=== PATIENT | male | born 2000 | race Caucasian/White ===

== ENCOUNTER 2023-10-18 09:59 | Outpatient (AMB) | payer OTHER, SELFPAY ==
--- NOTE | 2023-10-18 10:02 | MHC.PC.OV ---
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 Dr Langford at [facility] Last office visit/CPE: > 2 yrs Acute issue(s): Patient?has?lump?at?right?groin?which?goes?away?when?he?lies?down Pain?at?right?posterolateral?buttock?and?thigh.??Intermittent.??Improves?with?stretching.??No?current?pain PMHx: None SurgHx: [place] teeth. FHx: Mom: Healthy. Dad: Healthy. Brother Colon CA about age 39/40. SocHx: Nonsmoker. EtOH: occassional 1-2 drJulio C No drugs PFSH Medical History (Updated 10/18/23 @ 10:44 by Tom Colón) No pertinent past medical history Surgical History (Updated 10/18/23 @ 10:13 by Tiarra Joe CMA) No pertinent past surgical history Family History (Updated 10/18/23 @ 10:33 by Tiarra Joe CMA) Brother Cancer Paternal Grandfather Cancer Maternal Grandfather Diabetes Social History Household Members: Family Both parents involved: Yes Caregiver staying overnight: No Housing: House Are you a primary career placement services counselor to a significant other at home: No Do you presently have visiting nurse or other home services: No 75 years or older and lives alone: No Alcohol intake: current Alcohol intake frequency: holidays/special occasions only Alcohol type: beer and other Comment: stacy scott Patient Tobacco Use Status: Never used Tobacco e-Cigarette/Vaping Use: Former Use service: No Current occupational status: employed Current occupation: [employer] Cognitive needs: No Hearing needs: No Vision needs: Yes (Patient wears glasses.) Questionnaire PHQ-9 Over the last 2 weeks, how often have you been bothered by any of the following problems? 1. Little interest or pleasure in doing things: not at all 2. Feeling down, depressed, or hopeless: not at all 3. Trouble falling or staying asleep, or sleeping too much: not at all 4. Feeling tired or having little energy: not at all 5. Poor appetite or overeating: not at all 6. Feeling bad about yourself - or that you are a failure or have let yourself or your family down: not at all 7. Trouble concentrating on things, such as reading the newspaper or watching television: not at all 8. Moving or speaking so slowly that other people could have noticed. Or the opposite - being so fidgety or restless that you have been moving around a lot more than usual: several days 9. Thoughts that you would be better off or of hurting yourself in some way: several days Total score: 2 Depression Screening Interpretation: Negative Depression Screening Done: Yes Source: Developed by Drs. Star Boston, Mady Schwartz, Mart Peñaloza and colleagues, with an educational abi from [employer]. Thrive Questionnaire Date Thrive assessed: 10/18/23 I am a: Patient What is your living situation today?: I have a steady place to live Within the past 12 months, did the food you bought not last and you didn't have the money to get more?: Never true Within the past 12 months, did you worry whether your food would run out before you got money to buy more?: Never true Do you have trouble paying for medicines?: No Do you have trouble getting transportation to medical appointments?: No Do you have trouble paying your heating and electricity bill?: No Do you have trouble taking care of your child, family member or friend?: No Do you have trouble with day-to-day activities such as bathing, preparing meals, shopping, managing finances, etc.?: No Are you currently unemployed and looking for a job?: No Are you interested in more education?: Yes THRIVE Score: 0 AUDIT C Alcohol Use Questionnaire (AUDIT-C) 1. How often do you have a drink containing alcohol?: Monthly or less 2. How many drinks containing alcohol do you have on a typical day when you are drinking?: 1 or 2 3. How often do you have six or more drinks on one occasion?: Never Total Score: 1 FRANCOIS-7 AMB Questionnaire FRANCOIS-7 Date FRANCOIS - 7 assessed: 10/18/23 Feeling nervous, anxious, or on edge: 1 = Several days Not being able to stop or control worryin = Not at all Worrying too much about different things: 1 = Several days Trouble relaxin = Not at all Being so restless that it is hard to sit still: 1 = Several days Becoming easily annoyed or irritable: 1 = Several days Feeling afraid as if something awful might happen: 0 = Not at all Total FRANCOIS-7 score (0-4 normal; 5-9 mild; 10-14 moderate; 15-21 severe): 4 Source: Developed by Drs. Star Boston, Mady Schwartz, Mart Peñaloza and colleagues, with an educational abi from [employer]. Review of Systems Const Denies chills, Denies fatigue, Denies fever(s), Denies headache(s) and Denies weakness ENT Denies dizziness and Denies headache(s) Card Denies chest pain, Denies lightheadedness, Denies dyspnea and Denies other (Palpitations) Resp Denies cough, Denies dyspnea, Denies wheezing and Denies other ( shortness of breath) Musc Denies numbness and Denies tingling Neuro Denies dizziness, Denies headache(s), Denies numbness, Denies tingling, Denies paresthesias and Denies weakness Psych Denies anxiety and Denies depression Endo Denies fatigue Aller/Immun Denies wheezing Physical exam (Primary Care) BMI result Body Mass Index 26.7 Tobacco/Smoking Status: Tobacco use Status Tobacco use date assessed 10/18/23 10/18/23 10:13 Patient Tobacco Use Status Never used Tobacco 10/18/23 10:13 e-Cigarette/Vaping Use Former Use 03/29/24 10:13 Depression Screening Interpretation: Negative Const General: no acute distress and well developed Nutritional Appearance: well nourished Orientation/consciousness: patient oriented x3 HENMT Head: Yes normocephalic and Yes atraumatic Eyes General: appearance normal, both eyes and all related structures Pupils: Equal, round and reactive pupils present EOM: EOMs intact bilaterally Resp Effort & Inspection: normal respiratory effort Auscultation: clear to auscultation bilaterally Cardio Rate: regular rate Rhythm: regular rhythm Heart sounds: S1 normal heart sound present, S2 normal heart sound present, no gallops, no murmurs and no rubs Neuro General: patient oriented x3 and gait normal Cranial nerves: Yes Equal, round and reactive pupils present Psych Affect: normal affect Assessment and Plan Assessment & Plan (1) Groin lump: Code(s): R19.09 - Other intra-abdominal and pelvic swelling, mass and lump Plan: Faint?impulse?with?Valsalva Check?ultrasound. Rule?out?hernia May?need?referral?to?General?surgery (2) Right sided sciatica: Code(s): M54.31 - Sciatica, right side Plan: No?current?symptoms Encouraged?exercise?and?stretching If?pain?returns,?would?start?physical?therapy (3) Family history of colon cancer: Code(s): Z80.0 - Family history of malignant neoplasm of digestive organs Plan: Strong?family?history?of?early?colon?cancer;?brother?before?age?40 Referred?to?Gastroenterology (4) Laboratory exam ordered as part of routine general medical examination: Code(s): Z00.00 - Encounter for general adult medical examination without abnormal findings Plan: Check?labs Orders: Orders CT NG by PCR Today Z11.3 - Encounter for screening for infections with a predominantly sexual mode of transmission HIV Ab/Ag Today Z11.3 - Encounter for screening for infections with a predominantly sexual mode of transmission Hepatitis B,C Profile Today Z11.3 - Encounter for screening for infections with a predominantly sexual mode of transmission PT Evaluation and Treatment Today M54.41 - Lumbago with sciatica, right side Comprehensive [place]. Panel Fast Today Z00.00 - Encounter for general adult medical examination without abnormal findings Lipid Panel Today Z00.00 - Encounter for general adult medical examination without abnormal findings Microalbumin, Random (w Creat) Today I10 - Essential (primary) hypertension TSH reflex Free T4 Today Z00.00 - Encounter for general adult medical examination without abnormal findings UA and rflx microscopic Today Z00.00 - Encounter for general adult medical examination without abnormal findings Syphilis Screen Today Z11.3 - Encounter for screening for infections with a predominantly sexual mode of transmission pelvic limited Today R19.09 - Other intra-abdominal and pelvic swelling, mass and lump Referrals Gastroenterology Referral Z80.0 - Family history of malignant neoplasm of digestive organs Coding Level of Care Code New Pt Level 3 (44025) Diagnoses Groin lump R19.09 Right sided sciatica M54.31 Family history of colon cancer Z80.0 Laboratory exam ordered as part of routine general medical examination Z00.00
[2023-10-18 10:03] VITALS: BP 128/76; PULSE 80; O2SAT 98; BMI 26.7
== END 2023-10-18 10:51 | disposition home or self-care (01) ==
PROVIDERS: PCP Family Medicine; Visit Provider Family Medicine
DX: R19.09 Other intra-abdominal and pelvic swelling, mass and lump (principal); M54.31 Sciatica, right side; Z80.0 Family history of malignant neoplasm of digestive organs; Z00.00 Encounter for general adult medical examination without abnormal findings
CPT/HCPCS: 99203

== ENCOUNTER 2023-10-25 12:59 | Outpatient (REF) | payer OTHER, SELFPAY ==
--- NOTE | ~2023-10-25 | US_ITS ---
EXAMINATION: US PELVIS, LIMITED/FOLLOW UP CLINICAL INFORMATION: Bulge of the right inguinal canal with question of hernia. COMPARISON: None available. TECHNIQUE: High-frequency linear ultrasound transducer was used to examine the area of clinical concern in the right inguinal region. The exam was performed in both the supine and erect positions and the left inguinal region was scanned for comparison. Valsalva maneuvers were also utilized. FINDINGS: There is a small inguinal hernia seen most obvious with the patient sitting upright with a 2 cm mouth of the hernia. Some peristalsing bowel is thought to be seen in the small hernia sac. US/US pelvic limited IMPRESSION: Small right inguinal hernia containing bowel.
== END 2023-10-25 13:00 | disposition home or self-care (01) ==
LOC: HO.US 12:59
PROVIDERS: PCP Family Medicine; Visit Provider Family Medicine
DX: R19.09 Other intra-abdominal and pelvic swelling, mass and lump (principal)
CPT/HCPCS: 76857

== ENCOUNTER 2023-12-24 15:24 | Outpatient (AMB) | payer OTHER, SELFPAY ==
--- NOTE | 2023-12-24 15:33 | MHC.OFFVIS ---
Vital Signs 12/24/23 15:35 Height 6 in Weight 193 lb 8 oz BMI 3778.6 BP 152/75 H Blood Pressure Location Lt brachial Position Sitting Pulse 61 Intake Visit Reasons: Unilateral inguinal hernia Intake Note: Patient is seen in office for evaluation and treatment of a right inguinal hernia. 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 He recently identified the lump was confirmed on recent physical examination. He denies any pain, nausea, vomiting, constipation or diarrhea associated with the hernia. Evaluation with ultrasound of the right groin confirmed a right inguinal hernia. 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 He presents today to discuss his options regarding this hernia. [facility] Medical History No pertinent past medical history Surgical History Hx of wisdom tooth extraction Family History Brother Cancer Paternal Grandfather Cancer Maternal Grandfather Diabetes Social History Household Members: Family Both parents involved: Yes Caregiver staying overnight: No Housing: House Are you a primary child care lead teacher to a significant other at home: No Do you presently have visiting nurse or other home services: No 75 years or older and lives alone: No Alcohol intake: current Alcohol intake frequency: holidays/special occasions only Alcohol type: beer and other Comment: stacy chavez Patient Tobacco Use Status: Never used Tobacco e-Cigarette/Vaping Use: Former Use service: No Current occupational status: employed Current occupation: [employer] Cognitive needs: No Hearing needs: No Vision needs: Yes (Patient wears glasses.) Review of Systems Const All systems reviewed & are unremarkable except as noted in HPI and below Denies chills, Denies fever(s), Denies headache(s), Denies poor appetite and Denies weakness ENT Denies headache(s) Card Denies chest pain, Denies irregular heart rhythm, Denies palpitations and Denies dyspnea Resp Denies cough, Denies excessive phlegm production and Denies dyspnea GI Details: Hernia right inguinal Denies abdominal pain, Denies bloating, Denies change in bowel habits, Denies constipation, Denies heartburn, Denies diarrhea, Denies nausea and Denies vomiting Denies difficulty urinating and Denies urinary frequency Musc Denies back pain, Denies muscle weakness and Denies numbness Skin/Breast Denies changing lesions and Denies unusual bruising Neuro Denies headache(s), Denies numbness, Denies paresthesias and Denies weakness Psych Denies anxiety and Denies depression Endo Denies palpitations [place]/Lymph Denies lymphadenopathy Physical Exam Const General: cooperative and no acute distress Nutritional Appearance: well nourished Orientation/consciousness: patient oriented x3 Limitations: no limitations HEENT Head: Yes normocephalic and Yes atraumatic Ears: hearing grossly normal bilaterally Resp Effort & Inspection: normal respiratory effort, no audible wheezes, no cough and no respiratory distress Cardio Jugular venous distension: no JVD GI Other: Reducible right inguinal hernia identified in the standing position. No left inguinal hernia identified. Inspection: Yes normal to inspection Palpation (GI): Soft to palpation, nontender, no guarding and not rigid Percussion: Yes normal to percussion Auscultation: normal bowel sounds Skin Other: Warm, dry, no rash Neuro General: patient oriented x3 Extrem General: Yes no clubbing, cyanosis or edema Assessment & Plan Assessment & Plan (1) Right inguinal hernia: Code(s): K40.90 - Unilateral inguinal hernia, without obstruction or gangrene, not specified as recurrent Category: Medical Plan 23-year-old male patient presenting with a reducible right inguinal hernia. I reviewed the procedure, risks and alternatives regarding repair of this right inguinal hernia. 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 We also discussed the symptoms to be aware of which will require immediate medical attention. He expressed understanding and will call our office should he wish to schedule surgery or if he has further questions. Coding Level of Care Code New Pt Level 4 (43146) Diagnoses Right inguinal hernia K40.90
[2023-12-24 15:35] VITALS: BP 152/75; PULSE 61; BMI 3778.6
== END 2023-12-24 15:44 | disposition home or self-care (01) ==
PROVIDERS: PCP Family Medicine; Visit Provider Surgery
DX: K40.90 Unilateral inguinal hernia, without obstruction or gangrene, not specified as recurrent (principal)
CPT/HCPCS: 99204

== ENCOUNTER → 2023-12-24 15:24 | Outpatient (BNVA) | payer OTHER, SELFPAY | PROVIDERS: PCP Family Medicine; Visit Provider Surgery ==

== ENCOUNTER 2024-02-07 09:52 | Outpatient (REF) | payer OTHER, SELFPAY ==
[2024-02-07 14:04] LABS: Appearance Urine Clear; Color Urine Yellow; Glucose Urine UA Negative (Negative); Leukocyte Esterase Urine Negative (Negative); Nitrite Urine Negative (Negative); Specific Gravity - Urine 1.015 (1.005-1.025); Urine Blood Negative (Negative); Urine Ketones Negative (Negative); Urine Protein Negative (Neg-Trace)
[2024-02-07 16:35] LABS: Microalbum/Creatinine Ratio Ur 4.1 ug/mg cr (<30); Microalbumin Urine 6.2 mg/L
[2024-02-07 21:34] LABS: Alanine Aminotransferase 11 U/L (0-40); Alkaline Phosphatase 56 U/L (39-117); Anion Gap 16 (12-20); Aspartate Amino Transferase 18 U/L (5-37); Bilirubin Total 0.6 mg/dL (0.0-1.0); Blood Urea Nitrogen 13 mg/dL (9-16); Calcium 10.1 mg/dL (8.4-10.2); Carbon Dioxide 24 mmol/L (22-29); Chloride 106 mmol/L (96-108); Cholesterol 134 mg/dL (<200); Estimated Glomerular Filt Rate > 60; Glucose Fasting 80 mg/dL (60-99); HDL Cholesterol 42 mg/dL (>40); LDL Cholesterol Calculated 81 mg/dL (<100); Potassium 4.4 mmol/L (3.3-5.1); Sodium 142 mmol/L (135-145); TSH reflex Free T4 1.78 uIU/mL (0.32-4.0); Total Protein 7.8 g/dL (6.5-8.0); Triglycerides 57 mg/dL (<150)
[2024-02-08 03:31] LABS: Syphilis Screen Nonreactive (Nonreactive)
[2024-02-08 03:43] LABS: HBc Num1 0.47 S/CO (0.00-0.79); HBsAGNum1 0.32 S/CO (0.00-0.99); HIV AB/AG Nonreactive (Nonreactive); HIV Num 1 0.06 S/CO (0.00-0.99); Hepatitis B Core Antibody Nonreactive (Nonreactive); Hepatitis B Surface Antigen Negative (Negative); ~HepC Num1 0.14 S/CO (0.00-0.79); ~Hepatitis B Surface Antibody NONREACTIVE (Nonreactive); ~Hepatitis C Antibody Nonreactive (Nonreactive)
== END 2024-02-07 09:53 | disposition home or self-care (01) ==
LOC: HO.WFDLDS 09:52
PROVIDERS: Visit Provider Family Medicine
DX: Z00.00 Encounter for general adult medical examination without abnormal findings (principal); Z11.3 Encounter for screening for infections with a predominantly sexual mode of transmission; I10 Essential (primary) hypertension
CPT/HCPCS: 36415; 80053; 80061; 81003; 82043; 82570; 84443; 86704; 86706; 86780; 86803; 87340; 87389

== ENCOUNTER 2025-03-12 11:41 | Outpatient (AMB) | payer OTHER, SELFPAY ==
--- NOTE | 2025-03-12 11:43 | MHC.PC.OV ---
Vital Signs 03/12/25 11:47 Height 5 ft 11 in Weight 197 lb 4 oz BMI 27.5 BP 124/70 Blood Pressure Location Rt brachial Position Sitting Respiration 12 Pulse 71 Pulse Source Pulse Oximeter Temp 97.1 F Temp Source Oral Pulse Oximetry (%) 99 Oxygen Delivery Method Room Air Intake Visit Reasons: Physical / Dr. Jackson's pt. 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 Required: No Allergies top care sore throat spray Allergy (Severe, Uncoded 03/12/25 12:06) Hives Medication List - [facility] No Known Home Meds Tobacco use date assessed: 03/12/25 Dental Screening Dental Screen Date: 03/12/25 Did you have a dental visit in the last 12 months?: Yes Did you have a dental problem in the last 6 months where you did not have access to dental care?: No Was dental information given to patient?: Patient has dentist HPI HPI Comments History of Present Illness Details 24 y/o M with Fhx colon ca, reducible right inguinal hernia. SurgHx: [place] teeth. FHx: Mom: Healthy. Dad: Healthy. Brother Colon CA about age 39/40. SocHx: Nonsmoker. EtOH: occasional 1-2 dr. No drugs. Works at [id number]. Loves [employer]. Has a girlfriend. Specialists GI Gen Surg History of Present Illness - The patient is a 24-year-old male presenting for an annual physical examination. - Right inguinal hernia untreated, not currently symptomatic. Will get done in the winter time at [facility]. - Family history indicates brother's colon cancer diagnosed in 30s. Referred to GI last year but didnt schedule. Will do this year. - R Shoulder pain following volleyball incident 3 weeks ago; felt a loud pop; since then intermittent pain when overhead, movement limits activities. Cont w popping sensation. - Dry cough @ HS for the last few weeks. Denies asthma or allergy history. Social History - Employment: Currently working, looking to further education with a bachelor's in mechanical engineering. - Exercise: Engages in [employer] racing and other activities. - Substance Use: Occasionally smokes or vapes, denies specific triggers for current issues. Health Maintenance - Tetanus vaccination last recorded over 10 years ago, recommended for update today. Review of Systems - Gastrointestinal: Denies changes in stool or presence of blood. - Respiratory: Reports night-time dry cough. - Musculoskeletal: Reports shoulder pain with certain activities, denies other musculoskeletal concerns. - General: Denies recent illness or injuries except those discussed. Physical Exam General: Well developed, well nourished, in no acute distress. Appears stated age. Head: Normocephalic, atraumatic. Eyes: Pupils are equal, round and reactive to light and accommodation. Conjunctivae are clear. Vision grossly normal. Ears: TMs clear AU, EACS WNL Nose: Clear drainage, turbinates edematous and pale Mouth: There are no ulcers or lesions noted. No inflammation, + post nasal drip, no plaques nor exudates. Neck: Supple, no adenopathy or thyromegaly. Breast: Edu on SBE Lungs: Clear to auscultation bilaterally. No rales, rhonchi or wheeze noted. Good air flow in all payne. Heart: Regular rate and rhythm. No murmurs, click, rubs or gallops are noted. Abdomen: Bowel sounds present in all quadrants. The abdomen is soft, nontender, with no masses or organomegaly noted. No hernias are noted. : Deferred. Reviewed GAURAV & recommendations for routine Musculoskeletal: Joints are nontender, without swelling, redness, or effusions. Range of motion is observed to be normal. Pulses: Peripheral pulses are equal and palpable bilaterally. Extremities: No clubbing, cyanosis nor edema is noted. R shoulder w/ FROM. Has pain at the deltoid insertion with lateral movements and overhead movements. Normal strength and tone. No edema or erythema. Neurovasc intact. Neurologic: Gait and station normal. Cranial Nerves 2-12 intact. Motor strength grossly symmetrical and intact. No sensory loss. Balance normal. Skin: No rashes, ulcers, or lesions noted. Turgor is good. Skin color is good. Hair and nails are without abnormalities. Psych: Normal eye contact, affect and mood appropriate, and normal interactions. Patient is alert and appropriate to context. Results 01/2024 - Labs: no diabetes, normal liver function, normal cholesterol, no thyroid disease, urine normal, no STDs. Discussion Notes I discussed with the patient the importance of annual physical examinations and preventative health measures. We reviewed his brother's history of colon cancer and the significance of early screening, with plans set to renew the referral for a gastroenterology consultation. The patient expressed concern about a shoulder injury stemming from a sports incident. I recommended a potential assessment by an clinical rehab specialist and provided information on the nearest available walk-in orthopedic service. Regarding vaccines, I advised updating his tetanus shot, explaining the benefits and expected side effects. The implications of postnasal drip causing a nighttime cough were explained, suggesting an [id number] nasal spray, emphasizing follow-up should symptoms persist or worsen. The patient was appreciative and agreed to proceed with the recommendations provided. Patient was given time to ask questions. All questions were answered to their satisfaction. Assessment and Plan 1. Right Inguinal Hernia - Schedule surgery 2. Family History of Colon Cancer - Referral to [facility] 3. Shoulder Pain, R - Orthopedic evaluation and imaging suggested at [facility] for convenience given his schedule 4. Postnasal Drip likely causing his cough - [id number] nasal spray (flonase and saline) recommended. - If no improvement, RTO RTO 1 year CPE, sooner PRN Consent Patient was informed and verbally consented to the use of an ambient scribe for clinic note documentation during this visit. An additional 15 minutes was spent addressing the problem(s) noted at todays visit. This includes time spent before the visit reviewing the chart, time spent during the visit, and time spent after the visit on documentation reviewing laboratory results, diagnostic imaging, medications, performing a medically necessary evaluation, counseling on diagnoses, care coordination, ordering appropriate tests, ordering appropriate medications, review of tests performed by other providers, reporting test results with the patient, communication with other healthcare providers. [facility] Medical History No pertinent past medical history Surgical History Hx of wisdom tooth extraction Family History Brother Cancer Paternal Grandfather Cancer Maternal Grandfather Diabetes Social History Household Members: Family Both parents involved: Yes Caregiver staying overnight: No Housing: House Are you a primary menagerie caretaker to a significant other at home: No Do you presently have visiting nurse or other home services: No 75 years or older and lives alone: No Alcohol intake: current Alcohol intake frequency: holidays/special occasions only Alcohol type: beer and other Comment: stacy chavez Patient Tobacco Use Status: Never used Tobacco e-Cigarette/Vaping Use: Former Use service: No Current occupational status: employed Current occupation: [employer] Cognitive needs: No Hearing needs: No Vision needs: Yes (Patient wears glasses.) Questionnaire PHQ-9 Over the last 2 weeks, how often have you been bothered by any of the following problems? 1. Little interest or pleasure in doing things: not at all 2. Feeling down, depressed, or hopeless: not at all 3. Trouble falling or staying asleep, or sleeping too much: not at all 4. Feeling tired or having little energy: not at all 5. Poor appetite or overeating: not at all 6. Feeling bad about yourself - or that you are a failure or have let yourself or your family down: not at all 7. Trouble concentrating on things, such as reading the newspaper or watching television: not at all 8. Moving or speaking so slowly that other people could have noticed. Or the opposite - being so fidgety or restless that you have been moving around a lot more than usual: not at all 9. Thoughts that you would be better off or of hurting yourself in some way: not at all Total score: 0 Depression Screening Interpretation: Negative Depression Screening Done: Yes 81472 - PHQ-9 Billing: Yes Source: Developed by Drs. Star Boston, Mady Schwartz, Mart Peñaloza and colleagues, with an educational abi from [employer]. Thrive Questionnaire Date Thrive assessed: 03/12/25 I am a: Patient What is your living situation today?: I have a steady place to live Within the past 12 months, did the food you bought not last and you didn't have the money to get more?: Never true Within the past 12 months, did you worry whether your food would run out before you got money to buy more?: Never true Do you have trouble paying for medicines?: No Do you have trouble getting transportation to medical appointments?: No Do you have trouble paying your heating and electricity bill?: No Do you have trouble taking care of your child, family member or friend?: No Do you have trouble with day-to-day activities such as bathing, preparing meals, shopping, managing finances, etc.?: No Are you currently unemployed and looking for a job?: No Are you interested in more education?: Yes Please select the resources that you would like help with: None Currently or been in a relationship where the following occur: No concerns reported THRIVE Score: 0 AUDIT C Alcohol Use Questionnaire (AUDIT-C) 1. How often do you have a drink containing alcohol?: 2-4 times a month 2. How many drinks containing alcohol do you have on a typical day when you are drinking?: 1 or 2 3. How often do you have six or more drinks on one occasion?: Never Total Score: 2 Score Reviewed/Action Taken: Yes FRANCOIS-7 AMB Questionnaire FRANCOIS-7 Date FRANCOIS - 7 assessed: 03/12/25 Feeling nervous, anxious, or on edge: 0 = Not at all Not being able to stop or control worryin = Not at all Worrying too much about different things: 0 = Not at all Trouble relaxin = Not at all Being so restless that it is hard to sit still: 0 = Not at all Becoming easily annoyed or irritable: 0 = Not at all Feeling afraid as if something awful might happen: 0 = Not at all Total FRANCOIS-7 score (0-4 normal; 5-9 mild; 10-14 moderate; 15-21 severe): 0 Source: Developed by Drs. Star Boston, Mady Schwartz, Mart Peñaloza and colleagues, with an educational abi from [employer]. FRANCOIS-7 Assessment Billing FRANCOIS-7 Assessment Tool: FRANCOIS-7 Assessment 29727 Physical exam (Primary Care) Vital Signs: Last Vital Signs Temp 97.1 F 03/12/25 11:47 Pulse 71 03/12/25 11:47 Resp 12 03/12/25 11:47 BP 124/70 03/12/25 11:47 Pulse Ox 99 03/12/25 11:47 Oxygen Delivery Method Room Air 03/12/25 11:47 BMI result Body Mass Index 27.5 Tobacco/Smoking Status: Tobacco use Status Tobacco use date assessed 03/12/25 03/12/25 11:45 Patient Tobacco Use Status Never used Tobacco 03/12/25 11:45 e-Cigarette/Vaping Use Former Use 03/12/25 11:45 PHQ-9: PHQ-9 Score PHQ-9: Total score 0 03/12/25 12:06 Depression Screening Interpretation: Negative Thrive Assessment: Date of Thrive Assessment Date Thrive assessed 03/12/25 03/12/25 11:45 Currently or been in a relationship where the following occur: No concerns reported Immunizations Boostrix Tdap 2.5 Lf unit-8 mcg-5 Lf/0.5 mL intramuscular syringe Performing Provider: RUBEN May Performing Location: [facility] Administered by: Adriano Campbell MA on 03/12/25 12:33 Dose Route Admin Location Dispensed Lot Number Expiration Date NDC General Contractor 0.5 mL IM Left Deltoid 0.5 mL [id number] 05/11/27 31079-532-01 [employer] Total Dispensed Waste 0.5 mL 0 % VIS Given Date VIS Provided VIS Publication Date 03/12/25 Single Vaccine 21 Eligibility Eligibility Date Funding Source Not [facility] Eligible 03/12/25 Private Coding Level of Care Code Est Pt Level 2 (43844) Est Pt Prev Care 18-39y(92127) Diagnoses Encounter for general adult medical examination without abnormal findings Z00.00 Family history of colon cancer Z80.0 Right inguinal hernia K40.90 Post-nasal drip R09.82 Need for Tdap vaccination Z23 Additional Codes FRANCOIS-7 Assessment Billing - FRANCOIS-7 Assessment Tool: FRANCOIS-7 Assessment 27882 ([id number]) PHQ-9 - 71636 - PHQ-9 Billing: Yes ([id number]) Assessment & Plan Assessment & Plan (1) Encounter for general adult medical examination without abnormal findings: Onset Date: ~03/12/25 Code(s): Z00.00 - Encounter for general adult medical examination without abnormal findings Category: Medical (2) Family history of colon cancer: Comment: brother Code(s): Z80.0 - Family history of malignant neoplasm of digestive organs Category: Medical (3) Right inguinal hernia: Code(s): K40.90 - Unilateral inguinal hernia, without obstruction or gangrene, not specified as recurrent Category: Medical (4) Post-nasal drip: Code(s): R09.82 - Postnasal drip Category: Medical (5) Need for Tdap vaccination: Code(s): Z23 - Encounter for immunization Category: Medical Plan , Orders: Orders TDaP Immunization Today Z23 - Encounter for immunization Referrals Gastroenterology Referral Z12.11 - Encounter for screening for malignant neoplasm of colon, Z80.0 - Family history of malignant neoplasm of digestive organs Orthopedics Referral S49.91XA - Unspecified injury of right shoulder and upper arm, initial encounter Patient Instructions: Patient Instructions - Schedule and complete Gastro referral. - Consider an orthopedic evaluation for shoulder pain at [facility] - Use nasal saline or Flonase to manage postnasal drip symptoms, available over the counter. This should help your cough. - Tetanus shot admin. today. - Monitor health for significant changes or symptoms worsening. - RTO in 1 year for CPE. Sooner as needed. Health screenings for men You should visit your health care provider regularly, even if you feel healthy. The purpose of these visits is to: Screen for medical issues Assess your risk for future medical problems Encourage a healthy lifestyle Update vaccinations and other preventive care services Help you get to know your provider in case of an illness Information Even if you feel fine, you should still see your provider for regular checkups. These visits can help you avoid problems in the future. For example, the only way to find out if you have high blood pressure is to have it checked regularly. High blood sugar and high cholesterol level also may not have any symptoms in the early stages. Simple blood tests can check for these conditions. There are specific times when you should see your provider or receive specific health screenings. The [place] Preventive Services Task Force publishes a list of recommended screenings. Below are screening guidelines for men ages 40 to 64. BLOOD PRESSURE SCREENING Have your blood pressure checked at least once every year. Watch for blood pressure screenings in your area. Ask your provider if you can stop in to have your blood pressure checked. Ask your provider if you need your blood pressure checked more often if: You have diabetes, heart disease, kidney problems, or are overweight or have certain other health conditions You have a first-degree relative with high blood pressure You are Black Your blood pressure top number is from 120 to 129 mm Hg, or the bottom number is from 70 to 79 mm Hg If the top number is 130 mm Hg or greater or the bottom number is 80 mm Hg or greater, this is considered stage 1 hypertension. Schedule an appointment with your provider to learn how you can lower your blood pressure. Effects of age on blood pressure CHOLESTEROL SCREENING Cholesterol screening should begin at age 35 for men with no known risk factors for coronary heart disease. Repeat cholesterol screening should take place: Every 5 years for men with normal cholesterol levels More often if changes occur in lifestyle (including weight gain and diet) More often if you have diabetes, heart disease, kidney problems, or certain other conditions COLORECTAL CANCER SCREENING If you are under age 45, talk to your provider about getting screened. You may need to be screened if you have a strong family history of colon cancer or polyps. Screening may also be considered if you have risk factors such as a history of inflammatory bowel disease or polyps. If you are age 45 to 75, you should be screened for colorectal cancer. There are several screening tests available: A stool-based fecal occult blood (gFOBT) or fecal immunochemical test (FIT) every year A stool sDNA test every 1 to 3 years Flexible sigmoidoscopy every 5 years or every 10 years with stool testing FIT done every year CT colonography (virtual colonoscopy) every 5 years Colonoscopy every 10 years You may need a colonoscopy more often if you have risk factors for colorectal cancer, such as: Ulcerative colitis A personal or family history of colorectal cancer A history of growths in your colon called adenomatous polyps DENTAL EXAM Go to the dentist once or twice every year for an exam and cleaning. Your dentist will evaluate if you have a need for more frequent visits. DIABETES SCREENING All adults who do not have risk factors for diabetes should be screened starting at age 35 and repeated every 3 years. If you have other risk factors for diabetes, such as a first degree relative with diabetes, overweight or obesity, high blood pressure, prediabetes, or a history of heart disease, you may be tested more often. If you are overweight and have other risk factors, such as high blood pressure and are planning to become , screening is recommended. EYE EXAM Have an eye exam every 2 to 4 years ages 40 to 54 and every 1 to 3 years ages 55 to 64. Your provider may recommend more frequent eye exams if you have vision problems or glaucoma risk. Have an eye exam that includes an examination of your retina (back of your eye) at least every year if you have diabetes. IMMUNIZATIONS Commonly needed vaccines include: Flu shot: get one every year COVID-19 vaccine: ask your provider what is best for you Tetanus-diphtheria and acellular pertussis (Tdap) vaccine: have as one of your tetanus-diphtheria vaccines if you did not receive it as an adolescent Tetanus-diphtheria: have a booster (or Tdap) every 10 years Varicella vaccine: receive 2 doses if you never had chickenpox or the varicella vaccine and were born in 1980 or after Hepatitis B vaccine: receive 2, 3, or 4 doses, depending on your exact circumstances, if you did not receive these as a child or adolescent, until age 59 Shingles (herpes zoster) vaccine: at or after age 50 Ask your provider if you should receive other immunizations, especially if you have certain medical conditions, such as diabetes or are at increased risk for some diseases such as pneumonia. INFECTIOUS DISEASE SCREENING Screening for hepatitis C: all adults ages 18 to 79 should get a one-time test for hepatitis C. Screening for human immunodeficiency virus (HIV): all people ages 15 to 65 should get a one-time test for HIV. Depending on your lifestyle and medical history, you may need to be screened for infections such as syphilis, chlamydia, and other infections. LUNG CANCER SCREENING You should have an annual screening for lung cancer with low-dose computed tomography (LDCT) if: You are age 50 to 80 years AND You have a 20 pack-year smoking history AND You currently smoke or have quit within the past 15 years OSTEOPOROSIS SCREENING If you are age 50 to 64 and have risk factors for osteoporosis, you should discuss screening with your provider. Risk factors can include long-term steroid use, low body weight, smoking, heavy alcohol use, having a fracture after age 50, or a family history of hip fracture or osteoporosis. Osteoporosis PHYSICAL EXAM All adults should visit their provider from time to time, even if they are healthy. The purpose of these visits is to: Screen for diseases Assess risk of future medical problems Encourage a healthy lifestyle Update vaccinations and other preventive care services Maintain a relationship with a provider in case of an illness Your height, weight, and body mass index (BMI) should be checked at every exam. During your exam, your provider may ask you about: Depression and anxiety Diet and exercise Alcohol and tobacco use Safety, such as use of seat belts and smoke detectors Your medicines and risk for interactions PROSTATE CANCER SCREENING If you're 55 through 69 years old, before having the test, talk to your provider about the pros and cons of having a PSA test. Ask about: Whether screening decreases your chance of dying from prostate cancer. Whether there is any harm from prostate cancer screening, such as side effects from testing or overtreatment of cancer when discovered. Whether you have a higher risk of prostate cancer than others. If you are age 55 or younger, screening is not generally recommended. You should talk with your provider about if you have a higher risk for prostate cancer. Risk factors include: Having a family history of prostate cancer (especially a brother or father) Being If you choose to be tested, the PSA blood test is repeated over time (yearly or less often), though the best frequency is not known. Prostate examinations are no longer routinely done on men with no symptoms. Prostate cancer SKIN EXAM Your provider may check your skin for signs of skin cancer, especially if you're at high risk. People at high risk include those who have had skin cancer before, have close relatives with skin cancer, or have a weakened immune system. TESTICULAR EXAM The [place] Preventive Services Task Force (USPSTF) now recommends against performing testicular self-exams. Doing testicular self-exams has been shown to have little to no benefit.
[2025-03-12 11:47] VITALS: BP 124/70; PULSE 71; RESP 12; TEMP 36.2; O2SAT 99; BMI 27.5
== END 2025-03-12 12:40 | disposition home or self-care (01) ==
LOC: HO.HMCFM 11:42
PROVIDERS: PCP Family Medicine; Visit Provider Nurse Practitioner Family
DX: Z00.00 Encounter for general adult medical examination without abnormal findings (principal); K40.90 Unilateral inguinal hernia, without obstruction or gangrene, not specified as recurrent; R09.82 Postnasal drip; Z80.0 Family history of malignant neoplasm of digestive organs; Z23 Encounter for immunization

== ENCOUNTER → 2025-03-12 11:41 | Outpatient (BNVA) | payer OTHER, SELFPAY | PROVIDERS: PCP Family Medicine; Visit Provider Nurse Practitioner Family | DX: Z00.00 Encounter for general adult medical examination without abnormal findings (principal); K40.90 Unilateral inguinal hernia, without obstruction or gangrene, not specified as recurrent; M25.511 Pain in right shoulder; R09.82 Postnasal drip; Z23 Encounter for immunization; Z80.0 Family history of malignant neoplasm of digestive organs | CPT/HCPCS: 90471; 90715; 96127 ==